=== PATIENT | female | born 1940 | race Caucasian/White ===

== ENCOUNTER → 2017-04-07 | Outpatient (CLI) | payer OTHER | LOC: CIMAGING 09:55 | PROVIDERS: ATTEND Internal Medicine | DX: Z12.31 Encounter for screening mammogram for malignant neoplasm of breast (principal) | CPT/HCPCS: G0202 ==

== ENCOUNTER → 2017-09-02 | Outpatient (CLI) | payer OTHER | LOC: CIMAGING 10:49 | PROVIDERS: ATTEND Nurse Practitioner | DX: J40 Bronchitis, not specified as acute or chronic (principal) | CPT/HCPCS: 71046-PO ==

== ENCOUNTER → 2017-10-05 | Outpatient (CLI) | payer OTHER | LOC: CIMAGING 12:36 | PROVIDERS: ATTEND Family Medicine | DX: J40 Bronchitis, not specified as acute or chronic (principal) | CPT/HCPCS: 71046-PO ==

== ENCOUNTER 2017-10-22 08:39 | Observation (INO) | payer OTHER ==
[2017-10-22] MEDS ORDERED: IPRATROPIUM/ALBUTEROL 3 ML DEYVIAL IH ONE (08:55)
--- NOTE | 2017-10-22 09:02 | CPEKG ---
Heart Rate: 78 RR Interval: 769 QRSD Interval: 76 QT Interval: 384 QTC Interval: 438 QRS [place]: 58 T Wave [place]: 34 EKG Severity - ABNORMAL ECG - EKG Impression: A-FLUTTER W/ PREDOM 3:1 AV BLOCK, A-RATE 238 Electronically Signed By: Abril Horton 22-Oct-2017 09:12:43
--- NOTE | 2017-10-22 09:10 | EDPHY ---
H & P Time Seen by Provider: 10/22/17 08:43 HPI/ROS: HPI Cough, body aches, shortness of breath. 77-year-old female by private vehicle with her daughter. This patient reports having a history of pneumonia diagnosed in early September of this year. She was placed on azithromycin and prescribed a albuterol inhaler by her primary care physician at [facility], [place]. She reports that she felt better. Last night she developed a cough which she describes as nonproductive and with associated shortness of breath as well as body aches and a fever. She reports that this has persisted through this morning. ROS: Constitutional: As above. No weakness. Eyes: No discharge. No changes in vision. ENT: No sore throat. No nasal congestion or rhinorrhea. Respiratory: As above. Cardiac: No chest pain, no palpitations. Gastrointestinal: No abdominal pain, no vomiting, no diarrhea. Genitourinary: No hematuria. No dysuria or increased frequency with urination. Musculoskeletal: No back pain. No neck pain. As above. Skin: No rashes. Neurological: No headache. No focal weakness or altered sensation. Past medical history: Arrhythmia, hypothyroid, tonsillectomy. She takes metoprolol. Social history: Lives by herself currently. Her is in a fci. She is here with her daughter. No alcohol. Former smoker. Physical Exam: General Appearance: Alert, no distress. This patient is responding to questions appropriately and in full sentences. This patient appears well- hydrated and well-nourished. Eyes: Pupils equal and round no pallor or injection. No lid edema, erythema or injection. ENT, Mouth: Mucous membranes are moist. The pharyngeal tissues are unremarkable. No edema or swelling. No asymmetry suggestive of abscess. No erythema or exudates. Respiratory: There are no retractions, lungs are clear to auscultation except for some faint crackles at the bilateral bases, she has good air movement. No tachypnea. Cardiovascular: Regular rate and rhythm. No murmur. Neurological: Motor sensory function is grossly intact. Cranial nerves are normal. Gait is normal. Skin: Warm and dry, no rashes. Musculoskeletal: Neck is supple and nontender. No cervical, submandibular, submental lymphadenopathy. Extremities are symmetrical. All joints range without pain or impingement. Psychiatric: No agitation. No depression. Database: EKG: EKG time is 9:00 a.m.; EKG shows a narrow complex normal sinus rhythm with a ventricular rate of 78. The IA, QRS, QT intervals are within normal limits. There are no ST-T wave changes indicative of ischemic or injury pattern. No evidence of right heart strain. Interpreted by me. Imaging: Chest x-ray PA and lateral; the cardiac mediastinal silhouette is unremarkable. No evidence of pneumothorax. Possible early left lower lobe infiltrative process. Bronchitis present. No other acute cardiopulmonary disease process noted. Interpreted by me. Procedures: Emergency department course: Vital signs reviewed. She is afebrile currently. She is mildly hypoxic with a room air pulse oximetry in triage of 88%. She will be given a trial albuterol/ Atrovent nebulizer treatment. EKG obtained and reviewed by myself. Chest x- ray to be obtained shortly. 10:00 a.m., patient re-evaluated. Her temperature is elevating. Currently 37.5. She feels better after the nebulizer treatment as above. Repeat lung exam she has good air movement but still has some faint crackles at the bilateral bases. I discussed my concerns about her chest x-ray and the possibility of early pneumonia. She was given 1 g of oral Tylenol and 600 mg of ibuprofen. She will be started on oral Levaquin as well. I discussed admission. She currently does not want to do this. Her daughter lives very close to her and states that she can watch her closely. 11:00 a.m., the patient states that she is feeling worse, continued cough, pulse oximetry on room air in the mid to upper 80s. She was placed on 2 L of nasal cannula oxygen. At this time the patient is requesting to be admitted to the hospital overnight. I will obtain blood cultures, respiratory pathogen panel and standard blood work. Hospitalist paged. 11:10 a.m., spoke with on-call hospitalist Dr. Tito Gordon discussed in detail with him. He accepts this patient for admission. I have filled out the appropriate transfer paperwork. The patient will be transferred by ambulance. The patient's remaining emergency department course under my care has been uneventful. She was transferred in stable condition. Differential Diagnosis: The differential diagnosis on this patient includes but is not limited to bronchitis, influenza, pneumonia, CHF. This represents a partial list of diagnoses considered. These considerations are based on history, physical exam , past history, reassessment and diagnostic testing. Smoking Status: Former smoker Constitutional: Initial Vital Signs Temperature (C) 37 C 10/22/17 08:43 Heart Rate 83 10/22/17 08:43 Respiratory Rate 20 10/22/17 08:43 Blood Pressure 133/71 H 10/22/17 08:43 O2 Sat (%) 88 L 10/22/17 08:43 O2 Delivery Mode Room Air Allergies/Adverse Reactions: Penicillins Allergy (Mild, Verified 10/22/17 08:43) generic lipitor Allergy (Uncoded 10/22/17 08:43) Home Medications: Medication Instructions Recorded ARMOUR THYROID 02/26/11 CALCIUM CITRATE 02/26/11 Albuterol [Proventil Inhaler HFA 1 - 2 puffs IH Q4H #1 mdi 10/22/17 (*)] Aspirin 81mg (*) 10/22/17 Atorvastatin Calcium 10/22/17 Bystolic 10/22/17 levOFLOXACIN [levAQUIN (*)] 750 mg PO DAILY #6 tab 10/22/17 Medical Decision Making - Diagnostics Imaging Results: Imaging Impressions Chest X-Ray 10/22/17 08:52 Impression:1. Suspect interstitial lung disease. Consider noncontrast high- resolution chest CT to better evaluate the nature and distribution of the interstitial lung disease. 2. No bacterial pneumonia or CHF. - Data Points Laboratory Results: 10/22/17 09:15 Influenza A,B Rapid NEGATIVE FOR FLU (NEGATIVE) Medications Given: Discontinued Medications Acetaminophen (Tylenol) 1,000 mg PO EDNOW ONE Stop: 10/22/17 09:54 Last Admin: 10/22/17 09:57 Dose: 1,000 mg Albuterol/Ipratropium (Duoneb) 3 ml IH EDNOW ONE Stop: 10/22/17 08:56 Last Admin: 10/22/17 09:45 Dose: 3 ml Sodium Chloride (Ns) 500 mls @ 1,000 mls/hr IV EDNOW ONE PRN Reason: Protocol Stop: 10/22/17 11:28 Last Admin: 10/22/17 11:33 Dose: 500 mls Ibuprofen (Motrin) 600 mg PO EDNOW ONE Stop: 10/22/17 10:00 Last Admin: 10/22/17 10:01 Dose: 600 mg Levofloxacin (Levaquin) 750 mg PO EDNOW ONE PRN Reason: Protocol Stop: 10/22/17 10:14 Last Admin: 10/22/17 10:20 Dose: 750 mg Departure - Departure Disposition: [facility] Clinical Impression: Bronchitis, Hypoxia, Possible pneumonia
[2017-10-22] MEDS ORDERED: ACETAMINOPHEN 500 MG TAB PO ONE (09:53)
[2017-10-22] MEDS ORDERED: IBUPROFEN 600 MG TAB PO ONE (09:59)
[2017-10-22] MEDS ORDERED: NS 500 ML IV ONE (10:59)
[2017-10-22 11:36] LABS: PLATELET COUNT 276 10^3/uL (150-400)
[2017-10-22] MEDS ORDERED: ONDANSETRON 4 MG/2 ML VIAL IVP PRN (16:27)
[2017-10-22] MEDS ORDERED: HYDROCODONE/APAP 5/325 TAB PO PRN (16:27)
[2017-10-22] MEDS ORDERED: ALBUTEROL 3 ML DEYVIAL IH PRN (16:27)
[2017-10-22] MEDS ORDERED: ONDANSETRON DISINTEGRATING 4 MG TAB PO PRN (16:27)
[2017-10-22] MEDS: NS 1,000 ML IV SCH (17:10)
--- NOTE | 2017-10-22 17:43 | PDGENHP ---
History and Physical - Chief Complaint fever, sob - History of Present Illness 77 yo F with fairly minimal pmh admitted with complaints of cough, fever to 101 and shortness of breath. She notes earlier in the year she had been diagnosed with presumed pna by her pcp and treated with a z pack. This resolved however she now has similar sxs again. She notes she has been very exhausted and stressed recently due to her partner of 50 years actively dying in hospice. She has been spending a lot of time at the [place] where he is in hospice and has been exposed to many people with various illnesses. She has noted some wheezing as well with her breathing. She does not use o2 at home. She has not eaten for the last 24 hours and states that she has not urinated today. She denies GI complaints as well as other urinary issues, no rash, no chest pain. History Information - Allergies/Home Medication List Allergies/Adverse Reactions: Penicillins Allergy (Mild, Verified 10/22/17 08:43) Home Medications: Aspirin 81mg (*) 81 mg PO HS 10/22/17 [Last Taken 10/21/17] Atorvastatin Calcium [Lipitor 40 mg (*)] 40 mg PO HS 10/22/17 [Last Taken ] Calcium Citrate/Vitamin D3 [Calcium Cit 315-Vit D3 250 Tab] 2 tab PO HS [Last Taken 10/21/17] Nebivolol HCl [Bystolic 5 mg (*)] 5 mg PO HS 10/22/17 [Last Taken 10/21/17] Thyroid,Pork [Rumely Thyroid] 30 mg PO DAILY 10/22/17 [Last Taken 10/22/17] I have personally reviewed and updated: family history, medical history, social history, surgical history - Past Medical History GERD, hypertension, hyperlipidemia Additional medical history: hypothyroid. Valvular heart disease with mod to severe MR. Begum on bystolic - Surgical History Additional surgical history: cosmetic surgeries including breast augmentation. tonsillectomy - Family History Positive for: cancer (father with liver cancer) Additional family history: 3 children all healthy. Parents lived to their 90s - Social History Smoking Status: Former smoker Alcohol Use: Rarely Drug Use: None Additional social history: domestic partner x 50 years currently in hospice. 3 children Review of Systems Review of Systems: ROS: 10pt was reviewed & negative except for what was stated in HPI & below Physical Exam Physical Exam: Temp Pulse Resp BP Pulse Ox 36.7 C 75 20 98/47 L 90 L 10/22/17 15:49 10/22/17 15:49 10/22/17 15:49 10/22/17 15:49 10/22/17 15:49 O2 (L/minute) 2 Constitutional: no apparent distress, appears nourished Eyes: PERRL, anicteric sclera Ears, Nose, Mouth, Throat: moist mucous membranes, hearing normal Cardiovascular: regular rate and rhythym, no murmur, rub, or gallop, No edema Respiratory: expiratory wheeze, inspiratory crackles (left lower lobe), No respiratory distress Gastrointestinal: normoactive bowel sounds, soft, non-tender abdomen, no palpable masses Genitourinary: no bladder tenderness Skin: warm, normal color Musculoskeletal: full muscle strength Neurologic: AAOx3, sensation intact bilaterally Psychiatric: interacting appropriately, not anxious, not encephalopathic Lab Data & Imaging Review 10/22/17 11:25 10/22/17 11:25 WBC 10.64 10^3/uL (3.80-9.50) H 10/22/17 11:25 RBC 4.01 10^6/uL (4.18-5.33) L 10/22/17 11:25 Hgb 12.1 g/dL (12.6-16.3) L 10/22/17 11:25 Hct 36.1 % (38.0-47.0) L 10/22/17 11:25 MCV 90.0 fL (81.5-99.8) 10/22/17 11:25 MCH 30.2 pg (27.9-34.1) 10/22/17 11:25 MCHC 33.5 g/dL (32.4-36.7) 10/22/17 11:25 RDW 13.2 % (11.5-15.2) 10/22/17 11:25 Plt Count 276 10^3/uL (150-400) 10/22/17 11:25 MPV 8.6 fL (8.7-11.7) L 10/22/17 11:25 Neut % (Auto) 93.8 % (39.3-74.2) H 10/22/17 11:25 Lymph % (Auto) 3.4 % (15.0-45.0) L 10/22/17 11:25 [place] % (Auto) 2.1 % (4.5-13.0) L 10/22/17 11:25 Eos % (Auto) 0.0 % (0.6-7.6) L 10/22/17 11:25 Baso % (Auto) 0.4 % (0.3-1.7) 10/22/17 11:25 Nucleat RBC Rel Count 0.0 % (0.0-0.2) 10/22/17 11:25 Absolute Neuts (auto) 9.99 10^3/uL (1.70-6.50) H 10/22/17 11:25 Absolute Lymphs (auto) 0.36 10^3/uL (1.00-3.00) L 10/22/17 11:25 Absolute Monos (auto) 0.22 10^3/uL (0.30-0.80) L 10/22/17 11:25 Absolute Eos (auto) 0.00 10^3/uL (0.03-0.40) L 10/22/17 11:25 Absolute Basos (auto) 0.04 10^3/uL (0.02-0.10) 10/22/17 11:25 Absolute Nucleated RBC 0.00 10^3/uL (0-0.01) 10/22/17 11:25 Immature Gran % 0.3 % (0.0-1.1) 10/22/17 11:25 Immature Gran # 0.03 10^3/uL (0.00-0.10) 10/22/17 11:25 Sodium 137 mEq/L (135-145) 10/22/17 11:25 Potassium 4.4 mEq/L (3.5-5.2) 10/22/17 11:25 Chloride 106 mEq/L (97-110) 10/22/17 11:25 Carbon Dioxide 21 mEq/l (22-31) L 10/22/17 11:25 Anion Gap 10 mEq/L (8-16) 10/22/17 11:25 BUN 21 mg/dL (7-23) 10/22/17 11:25 Creatinine 0.8 mg/dL (0.6-1.0) 10/22/17 11:25 Estimated GFR > 60 10/22/17 11:25 Glucose 109 mg/dL (70-100) H 10/22/17 11:25 Calcium 8.6 mg/dL (8.5-10.4) 10/22/17 11:25 NT-Pro-B Natriuret Pep 1030 pg/mL (0-450) H 10/22/17 11:25 TSH 0.476 uIU/mL (0.465-4.680) 10/22/17 11:25 Influenza A,B Rapid NEGATIVE FOR FLU (NEGATIVE) 10/22/17 09:15 Visualized and Interpreted Chest x-ray results: Yes Chest X-Ray results: infiltrate (no clear pna but appears c/w interstitial lung disease) Visualized and Interpreted EKG results: Yes EKG Interpretation: Positive for: normal sinsus rhythm Assessment & Plan Assessment: Bronchitis (Acute) Hypoxia (Acute) 77 yo F with minimal PMH presenting with cough, sob, fever likely 2/2 pna # pna: suspect atypical pna given appearance on CXR although per radiology concerning for ILD. At this point will continue levofloxacin initiated by ER, will continue BDs. Respiratory PCR panel pending as is blood cultures. # acute hypoxic respiratory failure: in setting of above, currently requiring 2L to maintain o2 sats in low 90s. If not improving with usual therapy as above would consider high res CT chest to r/o underlying lung disease # decreased urination: creatinine within normal, patient states that it is due to decreased po intake, will get bladder scan, fluids overnight, check UA # hypothyroid: continue armour thyroid # HLD: continue statin # dispo: Observation status Patient new to my care. old records reviewed and summarized as above. Care plan reviewed with doctor.
[2017-10-22] MEDS: ACETAMINOPHEN 325 MG TAB PO PRN (20:01)
[2017-10-22] MEDS: CALCIUM CARB W/VIT D 500 MG TAB PO SCH ×2 (20:02→20:10)
[2017-10-22] MEDS: IPRATROPIUM/ALBUTEROL 3 ML DEYVIAL IH SCH (20:40)
[2017-10-22] MEDS ORDERED: ATORVASTATIN CALCIUM 40 MG TAB PO SCH (21:00)
[2017-10-22] MEDS ORDERED: ASPIRIN EC 81 MG TAB PO SCH (21:00)
[2017-10-22] MEDS ORDERED: NEBIVOLOL HCL 5 MG TAB PO SCH (21:00)
[2017-10-23] MEDS: NS 1,000 ML IV SCH (01:20)
[2017-10-23] MEDS: IPRATROPIUM/ALBUTEROL 3 ML DEYVIAL IH SCH ×2 (04:16→10:34)
[2017-10-23 07:49] VITALS: BP 113/61; PULSE 70; RESP 16; TEMP 97.8; O2SAT 96
[2017-10-23] MEDS ORDERED: THYROID 60 MG TAB PO SCH (10:00)
[2017-10-23] MEDS: ACETAMINOPHEN 325 MG TAB PO PRN (10:34)
--- NOTE | 2017-10-23 15:55 | GDS ---
[f rep st] DISCHARGE SUMMARY DISCHARGE DIAGNOSES: Include: 1. Acute hypoxic respiratory failure secondary to viral upper respiratory infection. 2. Acute rhino/enterovirus infection. 3. Fever secondary to viral pulmonary infection. HISTORY OF PRESENT ILLNESS: This is a 77-year-old female who presents with complaints of fever and s hortness of breath. For details of patient's initial presentation, please see the history and physic al dated 10/22/2017. CONSULTATIVE SERVICES: None. PROCEDURES: None. HOSPITAL COURSE: 1. Acute hypoxic respiratory failure: Patient presented and required 2 L of oxygen. Had atypical i nfiltrates on chest x-ray, more consistent with either a viral infection/pneumonia and/or an atypical pneumonia. The patient was initiated on levofloxacin, inhaled beta agonist, and Tylenol for fever, and had resolution of her hypoxia overnight. 2. Atypical community-acquired pneumonia: High suspicion this is simply viral in origin based on he r respiratory pathogen PCR. While I was evaluating the patient the morning after admission and titra ting her oxygen to room air, she received a phone call from her 's nursing facility reporting he was actively dying. Patient opted for disposition and we decided safest to discharge her with a s hort course of antibiotics for atypical pneumonia. She had had recent exposure to azithromycin, so w e opted for levofloxacin. Patient will complete a 7-day course of antibiotics, including the 2 doses she received in-house. Patient was satting in the low 90th percentile on room air at the time of di sposition and will continue the use of p.r.n. albuterol MDI as needed. MEDICATIONS AT DISPOSITION: Please reference the med rec printed on 10/23/2017. APPOINTMENTS: 1. Include with her PCP in the next 7-10 days after completion of antibiotics for pulmonary examinat ion and followup of her symptoms. 2. Bereavement care: We did contact the [facility] and verified that hospice, travel service consultant and [facility]our scarlet would be available to this patient as she was heading directly to what we presumed would be the [facility] of her . Family picked her up for transport over. PENDING STUDIES: At the time of this dictation, include blood cultures drawn 10/22/2017, which are p reliminarily no growth to date. TIME SPENT: I spent greater than 30 minutes in the planning and coordination of this discharge. /[id number]/MODL
== END 2017-10-23 10:37 | disposition home or self-care (01) ==
LOC: CED 08:39 → CEDHOLD 11:09 → F3E 14:42
PROVIDERS: ADMIT Internal Medicine; ATTEND Internal Medicine
DX: J96.01 Acute respiratory failure with hypoxia (principal); J06.9 Acute upper respiratory infection, unspecified; J12.9 Viral pneumonia, unspecified; E86.9 Volume depletion, unspecified; E78.5 Hyperlipidemia, unspecified; K21.9 Gastro-esophageal reflux disease without esophagitis; I10 Essential (primary) hypertension; E03.9 Hypothyroidism, unspecified; Z87.891 Personal history of nicotine dependence; Z88.0 Allergy status to penicillin
CPT/HCPCS: 71046; 93005; 96360; 99285; G0378; 80048-PO; 83880-PO; 84443-PO; 85025-PO; 87400-PO

== ENCOUNTER 2017-12-08 12:20 | Emergency (ER) | payer OTHER ==
--- NOTE | 2017-12-08 12:47 | CPEKG ---
Heart Rate: 66 RR Interval: 909 P-R Interval: 148 QRSD Interval: 76 QT Interval: 408 QTC Interval: 428 P Energy: 9 QRS [place]: 46 T Wave [place]: 28 EKG Severity - NORMAL ECG - EKG Impression: SINUS RHYTHM Electronically Signed By: Abril Horton 08-Dec-2017 12:55:10
[2017-12-08 12:49] LABS: PLATELET COUNT 312 10^3/uL (150-400)
--- NOTE | 2017-12-08 12:52 | EDPHY ---
H & P Time Seen by Provider: 12/08/17 12:28 HPI/ROS: HPI Shortness of breath. 77-year-old female by private vehicle. This patient presents to the emergency department complaining of shortness of breath. She was seen by myself in the emergency department on approximately October 23. She was diagnosed with bronchitis and possible pneumonia at that time. She was admitted to our hospitalist service. Her then felt ill and she requested discharge the next day. She was discharged on Levaquin. She completed a 7 day course of Levaquin. She reports her in. She presents to the emergency department today stating that she has had significantly worse shortness of breath with exertion. She reports that she was at a [employer] store and while caring her back she felt very short of breath. No associated chest pain. She is still had a intermittent residual cough from her episode of bronchitis in late September. She describes this as sometimes being productive of yellowish sputum. She reports she is also more short of breath when lying flat at night. ROS: Constitutional: No fever, no chills. No weakness. Eyes: No discharge. No changes in vision. ENT: No sore throat. No nasal congestion or rhinorrhea. Respiratory: As above. Cardiac: No chest pain, no palpitations. Gastrointestinal: No abdominal pain, no vomiting, no diarrhea. Genitourinary: No hematuria. No dysuria or increased frequency with urination. Musculoskeletal: No back pain. No neck pain. No myalgias or arthralgias. Skin: No rashes. Neurological: No headache. No focal weakness or altered sensation. Past medical history: GERD, hypertension, hyperlipidemia, hypothyroid, valvular disease with moderate to severe mitral valve regurgitation, tonsillectomy, breast augmentation. Social history: Former smoker. 3 children. recently . Physical Exam: General Appearance: Alert, no distress. She looks well. She is not dyspneic. This patient is responding to questions appropriately and in full sentences. This patient appears well-hydrated and well-nourished. Eyes: Pupils equal and round no pallor or injection. No lid edema, erythema or injection. Respiratory: There are no retractions, lungs are clear to auscultation except for some intermittent faint crackles with good air movement bilaterally. No tachypnea. Cardiovascular: Regular rate and rhythm. No murmur appreciated. Gastrointestinal: Abdomen is soft and nontender, no masses, bowel sounds normal. No focal tenderness at McBurney's point. No Mitchell sign. Neurological: Motor sensory function is grossly intact. Cranial nerves are normal. Gait is normal. Skin: Warm and dry, no rashes. Musculoskeletal: Neck is supple and nontender. Extremities are symmetrical. All joints range without pain or impingement. Psychiatric: No agitation. No depression. Database: EKG: EKG time is 12:44 p.m.; EKG shows a narrow complex normal sinus rhythm with a ventricular rate of 66. The [place], QRS, QT intervals are within normal limits. There are no ST-T wave changes indicative of ischemic or injury pattern. No evidence of right heart strain. Interpreted by me. Imaging: Chest x-ray PA and lateral; the cardiac mediastinal silhouette is unremarkable. Persistent peribronchial opacities which have been present at least since September. No evidence of new infiltrate or pneumothorax. No acute cardiopulmonary disease process noted. Interpreted by me. Procedures: Emergency department course: IV placed. She was placed on a cra officer. Vital signs reviewed. She is moderately hypertensive. Vital signs otherwise normal. Pulse oximetry is 90% on room air. EKG obtained and reviewed by myself. 1:50 p.m., patient re-evaluated. Resting comfortably at this time. She has been asymptomatic through her emergency department course. We got her up and walked her. With her walking around the emergency department her pulse oximetry came down to 90%. At this time she does not want to be admitted. I will try and contact her cupola tender and arrange for follow-up in their office tomorrow. 2:00 p.m., spoke with [facility]. They will see her on follow-up at 1:45 p.m. On WednesdayDecember 10 at their [place] office. This plan was discussed with the patient. She is already dressed and ready to go. She is in full agreement and will easily make this appointment. Return to emergency department precautions have been discussed with her. All of her questions were answered. She was discharged in good condition. Differential Diagnosis: The differential diagnosis on this patient includes but is not limited to CHF, bronchitis with reactive airway disease, valvular heart disease. Myocardial infarction, pulmonary embolism, pneumonia, pneumothorax unlikely. This represents a partial list of diagnoses considered. These considerations are based on history, physical exam, past history, reassessment and diagnostic testing. Smoking Status: Former smoker Constitutional: Initial Vital Signs Temperature (C) 36.5 C 12/08/17 12:24 Heart Rate 70 12/08/17 12:24 Respiratory Rate 18 12/08/17 12:24 Blood Pressure 155/95 H 12/08/17 12:24 O2 Sat (%) 98 12/08/17 12:24 O2 Delivery Mode Nasal Cannula O2 (L/minute) 1 Allergies/Adverse Reactions: Penicillins Allergy (Verified 12/08/17 12:28) Pt unsure of reaction. States "they say I am" Home Medications: Medication Instructions Recorded Aspirin 12/08/17 Atorvastatin Calcium 12/08/17 Bystolic 12/08/17 Proair Hfa Icu (*) 12/08/17 Synthroid 12/08/17 Medical Decision Making - Diagnostics Imaging Results: Imaging Impressions Chest X-Ray 12/08/17 12:31 Impression: 1. Persistent nonconsolidative peribronchial opacities, which have been apparent since at least September 2017. 2. No new or worsening pathology. - Data Points Laboratory Results: Laboratory Results 12/08/17 12:43 12/08/17 12:43 12/08/17 12/08/17 12/08/17 12:43 12:43 12:43 WBC 9.88 10^3/uL H 10^3/uL (3.80-9.50) RBC 4.23 10^6/uL 10^6/uL (4.18-5.33) Hgb 13.0 g/dL g/dL (12.6-16.3) Hct 38.6 % % (38.0-47.0) MCV 91.3 fL fL (81.5-99.8) MCH 30.7 pg pg (27.9-34.1) MCHC 33.7 g/dL g/dL (32.4-36.7) RDW 14.2 % % (11.5-15.2) Plt Count 312 10^3/uL 10^3/uL (150-400) MPV 8.8 fL fL (8.7-11.7) Neut % (Auto) 68.9 % % (39.3-74.2) Lymph % (Auto) 21.7 % % (15.0-45.0) [place] % (Auto) 6.8 % % (4.5-13.0) Eos % (Auto) 1.5 % % (0.6-7.6) Baso % (Auto) 0.7 % % (0.3-1.7) Nucleat RBC Rel Count 0.0 % % (0.0-0.2) Absolute Neuts (auto) 6.81 10^3/uL H 10^3/uL (1.70-6.50) Absolute Lymphs (auto) 2.14 10^3/uL 10^3/uL (1.00-3.00) Absolute Monos (auto) 0.67 10^3/uL 10^3/uL (0.30-0.80) Absolute Eos (auto) 0.15 10^3/uL 10^3/uL (0.03-0.40) Absolute Basos (auto) 0.07 10^3/uL 10^3/uL (0.02-0.10) Absolute Nucleated RBC 0.00 10^3/uL 10^3/uL (0-0.01) Immature Gran % 0.4 % % (0.0-1.1) Immature Gran # 0.04 10^3/uL 10^3/uL (0.00-0.10) PT 13.0 SEC SEC (12.0-15.0) INR 0.99 (0.83-1.16) APTT 28.1 SEC SEC (23.0-38.0) D-Dimer 0.51 ug/mLFEU H ug/mLFEU (0.00-0.50) Sodium 138 mEq/L mEq/L (135-145) Potassium 4.2 mEq/L mEq/L (3.5-5.2) Chloride 102 mEq/L mEq/L (97-110) Carbon Dioxide 23 mEq/l mEq/l (22-31) Anion Gap 13 mEq/L mEq/L (8-16) BUN 24 mg/dL H mg/dL (7-23) Creatinine 1.2 mg/dL H mg/dL (0.6-1.0) Estimated GFR 43 Glucose 98 mg/dL mg/dL (70-100) Calcium 9.2 mg/dL mg/dL (8.5-10.4) Troponin I < 0.012 ng/mL ng/mL (0.000-0.034) NT-Pro-B Natriuret Pep 380 pg/mL pg/mL (0-450) Departure - Departure Disposition: Home, Routine, Self-Care Clinical Impression: Dyspnea Condition: Good Instructions: Dyspnea (ED) Additional Instructions: Read and follow provided instructions. Follow-up with [facility], as scheduled this WednesdayDecember 10 at 1:45 p.m. at their [facility] office in [place]. Return to the emergency department for worsening symptoms, chest pain, fever or other serious concerns. Referrals: Dorie Pham MD [Primary Care Provider] - As per Instructions
[2017-12-08 13:23] LABS: INR 0.99 (0.83-1.16)
[2017-12-08 14:19] VITALS: BP 137/62
== END 2017-12-08 14:18 | disposition home or self-care (01) ==
LOC: CED 12:20
DX: R06.00 Dyspnea, unspecified (principal); I10 Essential (primary) hypertension; Z79.82 Long term (current) use of aspirin; Z87.891 Personal history of nicotine dependence
CPT/HCPCS: 71046-PO; 80048-PO; 83880-PO; 84484-PO; 85025-PO; 85378-PO; 85610-PO; 85730-PO

== ENCOUNTER → 2017-12-10 | Outpatient (CLI) | payer OTHER | LOC: BHFA 13:45 | PROVIDERS: ATTEND Internal Medicine Interventional Cardiology | DX: R00.2 Palpitations (principal); R53.83 Other fatigue; R06.02 Shortness of breath; E78.5 Hyperlipidemia, unspecified ==

== ENCOUNTER → 2018-01-03 | Outpatient (CLI) | payer OTHER | LOC: BHCLAF 09:15 | PROVIDERS: ATTEND Internal Medicine Cardiovascular Disease | DX: R00.2 Palpitations (principal); I34.0 Nonrheumatic mitral (valve) insufficiency | CPT/HCPCS: 93306-PO ==

== ENCOUNTER → 2018-02-08 | Outpatient (CLI) | payer OTHER | LOC: BHFA 13:15 | PROVIDERS: ATTEND Internal Medicine Cardiovascular Disease | DX: R06.09 Other forms of dyspnea (principal) ==

== ENCOUNTER → 2018-04-11 | Outpatient (CLI) | payer OTHER | LOC: CIMAGING 10:15 | PROVIDERS: ATTEND Internal Medicine Critical Care Medicine | DX: R91.8 Other nonspecific abnormal finding of lung field (principal); K44.9 Diaphragmatic hernia without obstruction or gangrene; I77.810 Thoracic aortic ectasia | CPT/HCPCS: 71250-PO ==

== ENCOUNTER → 2018-04-28 | Outpatient (CLI) | payer OTHER | LOC: CIMAGING 09:58 | PROVIDERS: ATTEND Nurse Practitioner | DX: Z12.31 Encounter for screening mammogram for malignant neoplasm of breast (principal) ==

== ENCOUNTER 2018-06-17 20:30 | Emergency (ER) | payer OTHER ==
--- NOTE | 2018-06-17 20:54 | EDPHY ---
H & P Stated Complaint: SOB and palpations Time Seen by Provider: 06/17/18 20:54 - Personal History Current Tetanus/Diphtheria Vaccine: Unsure Current Tetanus Diphtheria and Acellular Pertussis (TDAP): Unsure Tetanus Vaccine Date: unsure - Medical/Surgical History Hx Asthma: No Hx Chronic Respiratory Disease: Yes Hx Diabetes: No Hx Cardiac Disease: Yes Hx Renal Disease: No Hx Cirrhosis: No Hx Alcoholism: Yes Hx HIV/AIDS: No Hx Splenectomy or Spleen Trauma: No Other PMH: arrhythmia. hypothyroidism. Tosillectomy. jeovanny prolopse - Social History Smoking Status: Former smoker Constitutional: Initial Vital Signs Temperature (C) 36.5 C 06/17/18 20:38 Heart Rate 71 06/17/18 20:38 Respiratory Rate 18 06/17/18 20:38 Blood Pressure 141/53 H 06/17/18 20:38 O2 Sat (%) 90 L 06/17/18 20:38 O2 Delivery Mode Room Air Allergies/Adverse Reactions: Penicillins Allergy (Verified 06/17/18 20:42) Pt unsure of reaction. States "they say I am" Home Medications: Medication Instructions Recorded Aspirin 12/08/17 Bystolic 12/08/17 Proair Hfa Icu (*) 12/08/17 Synthroid 12/08/17 Calcium + D Soft Chewable Tab 06/17/18 Co Q-10 06/17/18 Lipitor 06/17/18 levOFLOXACIN [levAQUIN 750 MG (RX)] 750 mg PO DAILY #10 tab 06/17/18 Medical Decision Making - Diagnostics Imaging Results: Imaging Impressions Chest X-Ray 06/17/18 21:11 Impression: Mild central bronchitis, new.. Imaging: I viewed and interpreted images myself ED Course/Re-evaluation: CHIEF COMPLAINT: "I'm very short of breath" HISTORY OF PRESENT ILLNESS: The patient is a 77 y/o female with a history of arrhythmia and valvular disease arriving with her family member complaining of progressive dyspnea over the last week. She's had four prior episodes of pneumonia this year and is concerned she is ill again. She's felt generally poor and fatigued during this time. At one point she had "heart burn, but it felt different." She saw her ingredient specialist, Dr. Holden, for a routine visit on Wednesday, 2 days ago, and discussed these symptoms. He performed an echo that she says did not show anything immediately concerning. She currently has associated mild back soreness. No abdominal pain, vomiting, diarrhea, urinary symptoms. She reports her symptoms feel exactly the same as her prior episodes of pneumonia this year. She is not on any anticoagulants. REVIEW OF SYSTEMS: A comprehensive 10 system review of systems is otherwise negative aside from elements mentioned in the history of present illness and medical decision making. PHYSICAL EXAM: HR, BP, O2 Sat, RR. Temp noted General Appearance: Alert, well hydrated, appropriate, and non-toxic appearing. Head: Atraumatic without scalp tenderness or obvious injury Eyes: Pupils equal, round, reactive to light and accommodation, EOMI, no trauma , no injection. Nose: Atraumatic, no rhinorrhea, clear. Throat: There is no erythema or exudates, no lesions, normal tonsils, mucus membranes moist. Neck: Supple, nontender, no lymphadenopathy. Respiratory: No retractions, no distress, no wheezes, and no accessory muscle use. Decreased breath sounds at the bases bilaterally. Cardiovascular: Regular rate and rhythm, no murmurs, rubs, or gallops. Good capillary refill all extremities. Gastrointestinal: Abdomen is soft, nontender, non-distended, no masses, no rebound, no guarding, no peritoneal signs. Musculoskeletal: Normal active ROM of all extremities, atraumatic. Neurological: Alert, appropriate, and interactive. The patient has non-focal cranial nerves, motor, sensory, and cerebellar exam. Skin: No rashes, good turgor, no nodules on palpation. Past medical history: arrhythmia, hypothyroidism, mitral valve regurgitation, hyperlipidemia, hypertension Past surgical history: Tonsillectomy, breast augmentation Family history: Noncontributory Social history: this year, former smoker, family member at bedside. Prior medical records reviewed including admission 12/08/17 for dyspnea. DIAGNOSTICS/PROCEDURES/CRITICAL CARE TIME: The 12 lead EKG was interpreted by myself. Sinus mechanism. See hard copy and/ or "tracemaster" electronic copy for interpretation. Chest x-ray: LLL/retrocardiac infiltrate DIFFERENTIAL DIAGNOSIS: The differential diagnosis for the patient's shortness of breath and hypoxemia included but was not limited to pneumonia, myocardial infarction, acute mountain sickness, high altitude pulmonary edema, congestive heart failure, and pulmonary embolus. MEDICAL DECISION MAKING: This is a 77 y/o female who presents with a 1-week history progressive dyspnea that feels the same as her 4 prior episodes of pneumonia this year. She has decreased breath sounds in the bases bilaterally. She was 90% on room air in triage here. Plan for IV, labs, EKG, chest x-ray, and symptomatic management. Duo neb ordered. Troponin neg. WBC elevated at 20. Chest x-ray shows likely early pneumonia. Plan to treat with 750mg PO Levaquin. Reassessed patient and discussed findings. Her SpO2 has been hovering around 90 % during the majority of her stay here, but she reports this is normal for her. Offered admission for observation, but she declined and stated she had multiple resources available to help her at home including a home pulse oximeter to check her saturations. She will be discharged home with script for Levaquin and standard care and follow up instructions. Returns precautions discussed. - Data Points Laboratory Results: Laboratory Results 06/17/18 21:00 06/17/18 21:00 06/17/18 06/17/18 06/17/18 21:36 21:14 21:00 WBC RBC Hgb Hct MCV MCH MCHC RDW Plt Count MPV Neut % (Auto) Lymph % (Auto) [place] % (Auto) Eos % (Auto) Baso % (Auto) Nucleat RBC Rel Count Absolute Neuts (auto) Absolute Lymphs (auto) Absolute Monos (auto) Absolute Eos (auto) Absolute Basos (auto) Absolute Nucleated RBC Immature Gran % Immature Gran # PT INR APTT VBG Lactic Acid 1.1 mmol/L mmol/L (0.7-2.1) Sodium 138 mEq/L mEq/L (135-145) Potassium 4.6 mEq/L mEq/L (3.3-5.0) Chloride 106 mEq/L mEq/L (97-110) Carbon Dioxide 23 mEq/l mEq/l (22-31) Anion Gap 9 mEq/L mEq/L (6-14) BUN 21 mg/dL mg/dL (7-23) Creatinine 0.8 mg/dL mg/dL (0.6-1.0) Estimated GFR > 60 Glucose 103 mg/dL H mg/dL (70-100) Calcium 9.3 mg/dL mg/dL (8.5-10.4) Total Bilirubin 0.6 mg/dL mg/dL (0.1-1.4) POC Troponin I 0.00 ng/mL ng/mL (0.00-0.08) 06/17/18 06/17/18 21:00 21:00 WBC 20.65 10^3/uL H 10^3/uL (3.80-9.50) RBC 4.10 10^6/uL L 10^6/uL (4.18-5.33) Hgb 12.3 g/dL L g/dL (12.6-16.3) Hct 37.3 % L % (38.0-47.0) MCV 91.0 fL fL (81.5-99.8) MCH 30.0 pg pg (27.9-34.1) MCHC 33.0 g/dL g/dL (32.4-36.7) RDW 13.6 % % (11.5-15.2) Plt Count 335 10^3/uL 10^3/uL (150-400) MPV 8.6 fL L fL (8.7-11.7) Neut % (Auto) 90.5 % H % (39.3-74.2) Lymph % (Auto) 5.7 % L % (15.0-45.0) [place] % (Auto) 2.3 % L % (4.5-13.0) Eos % (Auto) 0.6 % % (0.6-7.6) Baso % (Auto) 0.4 % % (0.3-1.7) Nucleat RBC Rel Count 0.0 % % (0.0-0.2) Absolute Neuts (auto) 18.69 10^3/uL H 10^3/uL (1.70-6.50) Absolute Lymphs (auto) 1.17 10^3/uL 10^3/uL (1.00-3.00) Absolute Monos (auto) 0.48 10^3/uL 10^3/uL (0.30-0.80) Absolute Eos (auto) 0.12 10^3/uL 10^3/uL (0.03-0.40) Absolute Basos (auto) 0.09 10^3/uL 10^3/uL (0.02-0.10) Absolute Nucleated RBC 0.00 10^3/uL 10^3/uL (0-0.01) Immature Gran % 0.5 % % (0.0-1.1) Immature Gran # 0.10 10^3/uL 10^3/uL (0.00-0.10) PT 13.2 SEC SEC (12.0-15.0) INR 0.98 (0.83-1.16) APTT 28.1 SEC SEC (23.0-38.0) VBG Lactic Acid Sodium Potassium Chloride Carbon Dioxide Anion Gap BUN Creatinine Estimated GFR Glucose Calcium Total Bilirubin POC Troponin I Medications Given: Discontinued Medications Albuterol/Ipratropium (Duoneb) 3 ml IH EDNOW ONE Stop: 06/17/18 21:13 Last Admin: 06/17/18 21:59 Dose: 3 ml Levofloxacin (Levaquin) 750 mg PO EDNOW ONE PRN Reason: Protocol Stop: 06/17/18 22:15 Last Admin: 06/17/18 22:21 Dose: 750 mg Point of Care Test Results: Chemistry 06/17/18 21:14 POC Troponin I 0.00 ng/mL ng/mL (0.00-0.08) Departure - Departure Disposition: Home, Routine, Self-Care Clinical Impression: Pneumonia Qualifiers: Pneumonia type: due to unspecified organism Laterality: left Lung location: lower lobe of lung Qualified Code(s): J18.1 - Lobar pneumonia, unspecified organism Condition: Good Instructions: Levofloxacin (By mouth), Pneumonia (ED) Additional Instructions: 1. Take Levaquin as prescribed. Be sure to complete the entire prescription even if your symptoms have resolved. 2. Follow up with Dr. Newman on Wednesday for reevaluation. 3. Return to the ED for any worsening of condition. Referrals: Dorie Pham MD [Primary Care Provider] - As per Instructions Everardo Newman MD [Medical Doctor] - As per Instructions Prescriptions: levOFLOXACIN [levAQUIN 750 MG (RX)] 750 mg PO DAILY #10 tab Report Scribed for: Jose Armando Garcia Report Scribed by: Yennifer Aguilar Date of Report: 06/17/18 Time of Report: 21:06
[2018-06-17] MEDS ORDERED: IPRATROPIUM/ALBUTEROL 3 ML DEYVIAL IH ONE (21:12)
[2018-06-17 21:20] LABS: PLATELET COUNT 335 10^3/uL (150-400)
[2018-06-17 21:29] LABS: INR 0.98 (0.83-1.16); PROTIME(PATIENT) 13.2 SEC (12.0-15.0)
[2018-06-17 22:24] VITALS: BP 115/71
--- NOTE | 2018-06-17 22:32 | CPEKG ---
Test Reason : OPEN Blood Pressure : / mmHG Vent. Rate : 065 BPM Atrial Rate : 065 BPM P-R Int : 146 ms QRS Dur : 075 ms QT Int : 407 ms P-R-T Axes : 008 059 039 degrees QTc Int : 424 ms Sinus rhythm Confirmed by Jose Armando Garcia ([id number]) on 06/17/2018 10:31:59 PM Referred By: Confirmed By:Jose Armando Garcia
== END 2018-06-17 22:28 | disposition home or self-care (01) ==
DX: J18.1 Lobar pneumonia, unspecified organism (principal); F17.200 Nicotine dependence, unspecified, uncomplicated
CPT/HCPCS: 84484-PO

== ENCOUNTER → 2018-07-07 | Outpatient (CLI) | payer OTHER | LOC: CLAB 09:42 | PROVIDERS: ATTEND Family Medicine | DX: R91.8 Other nonspecific abnormal finding of lung field (principal); R50.9 Fever, unspecified | CPT/HCPCS: 71046-PO ==

== ENCOUNTER → 2018-07-13 | Outpatient (CLI) | payer OTHER | LOC: FIMAGING 14:29 | PROVIDERS: ATTEND Internal Medicine Pulmonary Disease | DX: J40 Bronchitis, not specified as acute or chronic (principal); J84.10 Pulmonary fibrosis, unspecified; M47.9 Spondylosis, unspecified | CPT/HCPCS: 82784-90 ==

== ENCOUNTER → 2018-08-19 | Outpatient (CLI) | payer OTHER | LOC: BHLMT 10:45 | PROVIDERS: ATTEND Internal Medicine Cardiovascular Disease | DX: R06.02 Shortness of breath (principal); R53.83 Other fatigue | CPT/HCPCS: 93306-PO ==

== ENCOUNTER → 2018-10-20 | Outpatient (CLI) | payer OTHER | LOC: CIMAGING 07:52 | PROVIDERS: ATTEND Emergency Medicine | DX: R10.11 Right upper quadrant pain (principal) | CPT/HCPCS: 36415-PO; 76705-PO ==

== ENCOUNTER → 2019-01-30 | Outpatient (CLI) | payer OTHER | LOC: CIMAGING 09:12 ==